=== PATIENT | male | born 1980 | race American Indian/Alaskan Native ===

== ENCOUNTER 2017-02-01 09:57 | Emergency (ER) | payer SELFPAY ==
[2017-02-01 10:13] VITALS: BP 137/100
[2017-02-01] MEDS ORDERED: NORCO 5/325 PO ONE (10:17)
[2017-02-01] MEDS ORDERED: NORCO 5/325 ONE (10:19)
--- NOTE | 2017-02-01 10:57 | XRay Report ---
XRAY RIGHT INDEX FINGER THREE VIEWS: 02/01/17 09:57:00 CLINICAL: Trauma with laceration. FINDINGS: A large bandage obscures some bony detail. Lucencies in the middle phalanx of the index finger extends to the DIP joint on 2 views. No other fracture. Soft tissue swelling. No soft tissue air or foreign body. IMPRESSION: Acute posttraumatic minimally displaced fractures of the middle phalanx of the index finger.
[2017-02-01] MEDS ORDERED: ceFAZolin 2 GM in NACL 0.9% 100 ML IV ONE (13:13)
--- NOTE | 2017-02-01 13:15 | Emergency Department Report ---
- General Chief Complaint: Wound/Laceration Stated Complaint: RIGHT INDEX FINGER LACERATION Time Seen by Provider: 02/01/17 13:12 Source: patient Mode of arrival: Ambulatory Limitations: No Limitations - History of Present Illness Initial Comments: 36-year-old male past medical history none presents with complaint of laceration to right index finger which occurred at work. Patient works at [employer] and states that while he was cleaning a sharp object at work he cut his right index finger accidentally. Patient has visible laceration to lateral aspect of right index finger denies any other injuries. Visibly losing blood from site. Finger wrapped with gauze initially. Patient states his last tetanus vaccine was in 2014. -: This morning Location: other Extremity Location: Right: Hand (right index finger) Place: work Patient Tetanus UTD: Yes (tdap UTD 2015 per pt) Context: accidental Associated Symptoms: pain Treatments Prior to Arrival: bandage - Related Data Previous Rx's Medication Instructions Recorded Last Taken Type Cephalexin [Keflex] 500 mg PO BID #14 capsule 02/01/17 Unknown Rx Naproxen [Naprosyn TAB] 500 mg PO BID PRN #30 tablet 02/01/17 Unknown Rx Allergies Allergy/AdvReac Type Severity Reaction Status Date / Time shellfish derived Allergy Hives Verified 02/01/17 10:17 ED Review of Systems ROS: Stated complaint: RIGHT INDEX FINGER LACERATION Other details as noted in HPI Constitutional: denies: chills, fever Eyes: denies: eye pain, eye discharge, vision change ENT: denies: ear pain, throat pain Respiratory: denies: cough, shortness of breath, wheezing Cardiovascular: denies: chest pain, palpitations Endocrine: no symptoms reported Gastrointestinal: denies: abdominal pain, nausea, diarrhea Genitourinary: denies: urgency, dysuria Musculoskeletal: denies: back pain, joint swelling, arthralgia Skin: denies: rash, lesions Neurological: denies: headache, weakness, paresthesias Psychiatric: denies: anxiety, depression Hematological/Lymphatic: denies: easy bleeding, easy bruising ED Past Medical Hx - Past Medical History Previous Medical History?: No - Surgical History Past Surgical History?: No - Social History Smoking Status: Never Smoker Substance Use Type: None - Medications Home Medications: Home Medications Medication Instructions Recorded Confirmed Last Taken Type Cephalexin [Keflex] 500 mg PO BID #14 capsule 02/01/17 Unknown Rx Naproxen [Naprosyn TAB] 500 mg PO BID PRN #30 tablet 02/01/17 Unknown Rx ED Physical Exam - General Limitations: No Limitations General appearance: alert, in no apparent distress - Head Head exam: Present: atraumatic, normocephalic - Eye Eye exam: Present: normal appearance, PERRL, EOMI - ENT ENT exam: Present: mucous membranes moist - Neck Neck exam: Present: normal inspection - Respiratory Respiratory exam: Present: normal lung sounds bilaterally. Absent: respiratory distress - Cardiovascular Cardiovascular Exam: Present: regular rate, normal rhythm. Absent: systolic murmur, diastolic murmur, rubs, gallop - GI/Abdominal GI/Abdominal exam: Present: soft, normal bowel sounds - Rectal Rectal exam: Present: deferred - Extremities Exam Extremities exam: Present: normal inspection - Expanded Upper Extremity Exam Right Hand L/R Front: 1 - Positive: laceration (horizontal laceration NOT circumeferntial lateral finger) Vascular: Present: normal capillary refill (cap refill less than 1 second ALL fingers), radial pulse, brachial pulse, ulnar pulse - Back Exam Back exam: Present: normal inspection - Neurological Exam Neurological exam: Present: alert, oriented X3 - Psychiatric Psychiatric exam: Present: normal affect, normal mood - Skin Skin exam: Present: warm, dry, intact, normal color. Absent: rash ED Course Vital Signs 02/01/17 02/01/17 10:05 10:20 Temperature 98.2 F Pulse Rate 83 Respiratory 20 20 Rate Blood Pressure 137/100 O2 Sat by Pulse 97 Oximetry - Laceration /Wound Repair Right Distal Finger Wound Location: upper extremity (right distal index finger on the lateral aspect of finger) Wound Length (cm): 3 Wound's Depth, Shape: stellate Irrigated w/ Saline (ccs): 1,000 Betadine Prep?: Yes Anesthesia: 1% Lidocaine (8) Volume Anesthetic (ccs): 8 Wound Debrided: minimal Wound Repaired With: sutures Suture Size/Type: 4:0, nylon Number of Sutures: 9 Layer Closure?: Yes Deep Layer Suture Size/Type: 4:0, gut Number Deep Layer Sutures: 1 Progress: Area is infiltrated with lidocaine, digital block performed, good anesthesia achieved. One deep suture placed, 6 external sutures placed - Nerve Block Consent Obtained: verbal consent Time Out Performed: Yes Local Anesthetic Used: Lidocaine 2% Amount of anesthesia used: 6 Side: right Nerve Blocks: digital Procedure Successful: Yes Patient Tolerated Procedure: well ED Medical Decision Making - Medical Decision Making A/P: Distal index finger fracture/laceration 1-closure achieved sutures, finger placed in finger splint 2-2 g Ancef, will discharge with a course of Keflex 3-follow-up with orthopedics this week. I advised patient to do so to mitigate any potential long-term complications 4- finger neurovascularly intact good distal pulses good capillary refill good distal sensation range of motion PIP and DIP MCP fully intact. 5- case discussed with Dr. Cooper before discharge, updated on AMA status 6- I consulted [facility] transfer center and discussed case with transfer employment program representative. Dr. Gant on-call orthopedic doctor recommended immediate orthopedic evaluation of finger. I presented patient with this update and informed him that he would have to be transferred via EMS. Patient elected to drive himself. I informed patient that if he left on his own he would have to leave AGAINST MEDICAL ADVICE as transfer center is recommending EMS transfer. I advised pt that he is ask risk of osteomyelitis and loss of finger or finger function is he does nto follow up with orthopedics [place]. pt stated he understood and would go to [facility] on his own accord. Critical care attestation.: If time is entered above; I have spent that time in minutes in the direct care of this critically ill patient, excluding procedure time. ED Disposition Clinical Impression: Left against medical advice Finger fracture, right Qualifiers: Encounter type: initial encounter Finger: index finger Fracture type: open Phalanx: middle Fracture alignment: nondisplaced Qualified Code(s): S62.650B - Nondisplaced fracture of medial phalanx of right index finger, initial encounter for open fracture Finger laceration Qualifiers: Encounter type: initial encounter Finger: index finger Damage to nail status: without damage Foreign body presence: without foreign body Laterality: right Qualified Code(s): S61.210A - Laceration without foreign body of right index finger without damage to nail, initial encounter Disposition: [id number] LEFT AGAINST MED ADVICE Is pt being admited?: No Does the pt Need Aspirin: No Condition: Stable Instructions: Suture Care (ED), Laceration (ED), Finger Fracture (ED), Finger Laceration (ED) Additional Instructions: Patient advised to go to [facility] emergency department where he can obtain stat orthopedic consultation and evaluation. Prescriptions: Cephalexin [Keflex] 500 mg PO BID #14 capsule Naproxen [Naprosyn TAB] 500 mg PO BID PRN #30 tablet PRN Reason: Pain Referrals: JUAN MARTINEZ MD [Staff Physician] - 3-5 Days Forms: AMA Form Time of Disposition: 15:06
[2017-02-01] MEDS ORDERED: NACL 0.9% 1000 ML 1,000 ML ONE (13:43)
[2017-02-01] MEDS ORDERED: NACL 0.9% 500 ML 500 ML IV ONE (14:00)
[2017-02-01] MEDS ORDERED: XYLOCAINE 1% 20 mL INFILTRATI ONE (14:55)
[2017-02-01] MEDS ORDERED: TRIPLE ANTIBIOTIC TP ONE (15:07)
== END 2017-02-01 16:25 | disposition left against medical advice (07) ==
LOC: ED 09:57
DX: S62.650B Nondisplaced fracture of middle phalanx of right index finger, initial encounter for open fracture (principal); S61.210A Laceration without foreign body of right index finger without damage to nail, initial encounter; W26.9XXA Contact with unspecified sharp object(s), initial encounter; Y93.89 Activity, other specified; Y99.9 Unspecified external cause status; Y92.69 Other specified industrial and construction area as the place of occurrence of the external cause
CPT/HCPCS: 12032; 73140; 96365; 99284; J0690; J7030; J7040; A6250